=== PATIENT | female | born 1960 | race Caucasian/White ===

== ENCOUNTER 2020-08-10 17:04 | Emergency (ER) | payer BC ==
[2020-08-10 17:27] VITALS: PULSE 90
[2020-08-10] MEDS ORDERED: Aspirin 81 MG Tab.Chew PO ONE (17:39)
[2020-08-10] MEDS ORDERED: Alum Hydrox/Mag Hydrox/Simeth 30 ML, Lidocaine 2% 15 ML PO ONE ×2 (19:36)
--- NOTE | 2020-08-10 19:41 | EDM.PDOC ---
ED HPI GENERAL MEDICAL PROBLEM - General Chief Complaint: Chest Pain Stated Complaint: CHEST PAINS AND BACK HURTS Time Seen by Provider: 08/10/20 17:21 Source of Information: Reports: Patient, RN Notes Reviewed - History of Present Illness INITIAL COMMENTS - FREE TEXT/NARRATIVE: 59 yr old female comes in with intermitent chest discomfort over the past 5 days. When present feels like a tightness ant. chest with radiation to her back. Does not radiate to her shoulder or arm. Hx of hyperlipidemia but no personal hx CAD, Htn, or diabetes and she does not smoke. Has not been ill with cough, fever, chills and also not short of breath. Chest Pain Score (Numeric/FACES): 5 - Related Data Allergies Allergy/AdvReac Type Severity Reaction Status Date / Time No Known Allergies Allergy Verified 12/06/15 19:36 Home Meds: Home Meds [place]-3 Fatty Acids/Fish Oil [Fish Oil 1,000 mg Capsule] 1 tab PO DAILY 08/10/20 [History] Simvastatin 1 tab PO DAILY 08/10/20 [History] Ubidecarenone [Co Q-10] 1 tab PO DAILY 08/10/20 [History] Past Medical History HEENT History: Reports: Impaired Vision Cardiovascular History: Reports: High Cholesterol - Infectious Disease History Infectious Disease History: Reports: Chicken Pox - Past Surgical History Female Surgical History: Reports: D&C Social & Family History - Family History Family Medical History: Noncontributory - Tobacco Use Tobacco Use Status *Q: Never Tobacco User ED ROS GENERAL - Review of Systems Review Of Systems: See Below Constitutional: Denies: Fever, Chills, Diaphoresis HEENT: Reports: No Symptoms Respiratory: Denies: Shortness of Breath, Pleuritic Chest Pain, Cough Cardiovascular: Reports: Chest Pain. Denies: Edema GI/Abdominal: Denies: Nausea, Vomiting Musculoskeletal: Reports: Back Pain, Muscle Pain. Denies: Neck Pain, Shoulder Pain, Arm Pain Neurological: Reports: No Symptoms ED EXAM, GENERAL - Physical Exam Exam: See Below General Appearance: Alert, No Apparent Distress Head: Atraumatic Neck: Supple Respiratory/Chest: No Respiratory Distress, Lungs Clear, Normal Breath Sounds, Chest Non-Tender Cardiovascular: Regular Rate, Rhythm GI/Abdominal: Soft, Non-Tender Back Exam: No: CVA Tenderness (L), CVA Tenderness (R) Extremities: Normal Inspection. No: Pedal Edema, Leg Pain Neurological: Alert, Oriented, No Motor/Sensory Deficits Skin Exam: Warm, Dry, Normal Color #1 Interpretation EKG Date: 08/10/20 Rhythm: NSR [place]: Normal P-Wave: Present QRS: Other (q waves III and AVF) ST-T: Normal Course - Vital Signs Last Recorded V/S: Last Vital Signs Temp 97.4 F 08/10/20 17:22 Pulse 90 08/10/20 17:22 Resp 18 08/10/20 19:55 BP 138/79 08/10/20 19:55 Pulse Ox 94 L 08/10/20 19:55 - Orders/Labs/Meds Orders: Active Orders 24 hr Category Date Time Status EKG 12 Lead [EKG Documentation Completion] [RC] STAT Care 08/10/20 17:39 Active Chest 1V Frontal [CR] Stat Exams 08/10/20 17:39 Taken Labs: Laboratory Tests 08/10/20 08/10/20 Range/Units 17:50 17:50 WBC 6.46 (3.98-10.04) K/mm3 RBC 4.20 (3.98-5.22) M/mm3 Hgb 13.1 (11.2-15.7) gm/dl Hct 38.7 (34.1-44.9) % MCV 92.1 (79.4-94.8) fl MCH 31.2 (25.6-32.2) pg MCHC 33.9 (32.2-35.5) g/dl RDW Std Deviation 44.4 (36.4-46.3) fL Plt Count 321 (182-369) K/mm3 MPV 9.0 L (9.4-12.3) fl Neut % (Auto) 48.2 (34.0-71.1) % Lymph % (Auto) 41.5 (19.3-51.7) % [place] % (Auto) 7.7 (4.7-12.5) % Eos % (Auto) 1.9 (0.7-5.8) Baso % (Auto) 0.5 (0.1-1.2) % Neut # (Auto) 3.12 (1.56-6.13) K/mm3 Lymph # (Auto) 2.68 (1.18-3.74) K/mm3 [place] # (Auto) 0.50 H (0.24-0.36) K/mm3 Eos # (Auto) 0.12 (0.04-0.36) K/mm3 Baso # (Auto) 0.03 (0.01-0.08) K/mm3 Sodium 140 (136-145) mEq/L Potassium 3.6 (3.5-5.1) mEq/L Chloride 104 (98-107) mEq/L Carbon Dioxide 23 (21-32) mEq/L Anion Gap 16.6 H (5-15) BUN 14 (7-18) mg/dL Creatinine 0.7 (0.55-1.02) mg/dL Est Cr Clr Drug Dosing 74.72 mL/min Estimated GFR (MDRD) > 60 (>60) mL/min BUN/Creatinine Ratio 20.0 H (14-18) Glucose 90 (74-106) mg/dL Calcium 8.4 L (8.5-10.1) mg/dL Total Bilirubin 0.3 (0.2-1.0) mg/dL AST 31 (15-37) U/L ALT 57 (14-59) U/L Alkaline Phosphatase 89 (46-116) U/L Troponin I < 0.017 (0.00-0.056) ng/mL Total Protein 7.7 (6.4-8.2) g/dl Albumin 3.7 (3.4-5.0) g/dl Globulin 4.0 gm/dL Albumin/Globulin Ratio 0.9 L (1-2) Meds: Medications Discontinued Medications Generic Name Dose Route Start Last Admin Trade Name Freq PRN Reason Stop Dose Admin Aspirin 324 mg 08/10/20 17:39 08/10/20 17:56 Aspirin PO 08/10/20 17:40 324 mg ONETIME ONE Administration Al Hydroxide/Mg Hydroxide 30 0 ml 08/10/20 19:36 08/10/20 19:51 ml/ Lidocaine HCl 15 ml PO 08/10/20 19:37 45 ml ONETIME ONE Administration - Re-Assessments/Exams Free Text/Narrative Re-Assessment/Exam: 08/10/20 20:12 EKG no acute changes, trop neg., CXR nl, sinus rythm, no ectopy. Discharge instr. as documented. Departure - Departure Time of Disposition: 19:37 Disposition: Home, Self-Care 01 Condition: Fair Clinical Impression: Atypical chest pain Instructions: Nonspecific Chest Pain, Adult, [id number] Referrals: Sarahi Graf PA-C [Primary Care Provider] - Forms: ED Department Discharge Additional Instructions: Start the prilosec that you have once or twice daily. Follow up clinic Saturday for recheck or early next week. Return to ED as needed if symptoms worsening in any way. Sepsis Event Note (ED) - Evaluation Sepsis Screening Result: No Definite Risk - Focused Exam Vital Signs: Vital Signs Temp Pulse Resp BP Pulse Ox 08/10/20 19:55 18 138/79 94 L 08/10/20 17:22 97.4 F 90 18 146/88 H 95 - My Orders Last 24 Hours: My Active Orders 08/10/20 17:39 EKG 12 Lead [EKG Documentation Completion] [RC] STAT Chest 1V Frontal [CR] Stat - Assessment/Plan Last 24 Hours: My Active Orders 08/10/20 17:39 EKG 12 Lead [EKG Documentation Completion] [RC] STAT Chest 1V Frontal [CR] Stat
[2020-08-10 20:00] VITALS: BP 138/79
== END 2020-08-10 19:55 | disposition home or self-care (01) ==
LOC: JD.ED 17:04
DX: R07.89 Other chest pain (principal); E78.00 Pure hypercholesterolemia, unspecified; Z79.899 Other long term (current) drug therapy
CPT/HCPCS: 36415; 71045; 80053; 84484; 85025; 93005; 99285; A9270; 93010; 99283

== ENCOUNTER 2024-04-07 07:49 | Day surgery (SDC) | payer BC ==
[~2024-04-07 07:49] MED LIST: Sodium Chloride 0.9% 10 ML Syringe FLUSH PRN; Sodium Chloride 0.9% 10 ML Syringe FLUSH SCH
[2024-04-07] MEDS: Lactated Ringers 1,000 ML IV SCH (08:10)
[2024-04-07] MEDS ORDERED: Propofol 200 MG/20 ML SDV ONE (10:10)
[2024-04-07] MEDS ORDERED: Lidocaine 1% 4 ML ONE (10:11)
[2024-04-07 11:33] VITALS: BP 129/65; PULSE 78
== END 2024-04-07 11:18 | disposition home or self-care (01) ==
LOC: JD.SDS 07:49
PROVIDERS: ATTEND Surgery
DX: Z12.11 Encounter for screening for malignant neoplasm of colon (principal); K57.30 Diverticulosis of large intestine without perforation or abscess without bleeding; E78.00 Pure hypercholesterolemia, unspecified; F41.9 Anxiety disorder, unspecified; G47.33 Obstructive sleep apnea (adult) (pediatric); Z79.899 Other long term (current) drug therapy; Z79.84 Long term (current) use of oral hypoglycemic drugs
CPT/HCPCS: 45378; J2704; J7120; J3490